=== PATIENT | female | born 1945 | race Caucasian/White ===

== ENCOUNTER → 2018-11-20 09:01 | Outpatient (CLI) | payer MEDICARE, SELFPAY ==
--- NOTE | 2018-11-20 | DI.MRI.S_ITS ---
PROCEDURE: MR KNEE LT WO CON INDICATIONS: PAIN IN LEFT KNEE TECHNIQUE: Noncontrast sagittal PD fast spin echo and T2 fast spin echo with fat saturation, sagittal 3-D FLASH with fat saturation; coronal T1 spin echo and PD fast spin echo with fat saturation, and axial PD fast spin echo with fat saturation through the knee. COMPARISON: None. FINDINGS: Image quality: Excellent. Menisci: The medial meniscus is intact. There is amorphous high signal intensity within the lateral meniscal body and anterior horn, demonstrating superior articular surface extension, indicating degenerative tearing. Cruciate ligaments: The anterior and posterior cruciate ligaments appear intact. Medial structures: The medial collateral ligament appears intact. Visualized portions of the pes anserinus tendons appear normal. No abnormal bursal fluid. Lateral structures: The lateral collateral ligament, long and short heads of the biceps femoris tendon appear intact. The popliteus tendon appears normal. Iliotibial band appears normal. Anterior structures: The quadriceps and patellar tendons appear intact. Patellar alignment is normal. No femoral trochlear dysplasia or ventral trochlear prominence. Mild edema in the infrapatellar fat pad. Bones and cartilage: No bone marrow contusions or fractures. There is mild diffuse articular cartilage loss overlying the weightbearing aspects of the medial femoral condyle and medial tibial plateau. Moderate articular cartilage loss diffusely overlies the weightbearing aspects of the lateral femoral condyle and lateral tibial plateau. Mild articular cartilage loss overlies the patellar apex and lateral patellar facet inferiorly. Small focus of underlying degenerative marrow edema within the patellar apex is present. Joint space: There is a small knee joint effusion and a trace Sadners's cyst. Normal appearing synovial plicae are incidentally noted. IMPRESSION: 1. Degenerative tearing of the lateral meniscus. 2. Tricompartmental osteoarthritis with associated articular cartilage loss. 3. Knee joint effusion and Sanders's cyst. Dictated by: Lionel Snow M.D. on 11/20/2018 at 10:10 Approved by: Lionel Snow M.D. on 11/20/2018 at 10:12
== END ==
PROVIDERS: PCP Family Medicine; Visit Provider Family Medicine
DX: M25.562 Pain in left knee (principal); M23.242 Derangement of anterior horn of lateral meniscus due to old tear or injury, left knee; M17.12 Unilateral primary osteoarthritis, left knee; M25.462 Effusion, left knee; M71.22 Synovial cyst of popliteal space [Baker], left knee
CPT/HCPCS: 73721

== ENCOUNTER 2019-04-26 22:06 | Observation (INO) | payer MEDICARE, SELFPAY ==
[2019-04-26 22:13] VITALS: BP 169/77; PULSE 71; RESP 16; TEMP 36.9; O2SAT 98
--- NOTE | 2019-04-26 22:15 | DI.RAD.S_ITS ---
PROCEDURE: XR CHEST 1V INDICATIONS: chest/neck discomfort TECHNIQUE: One view of the chest was acquired. COMPARISON: None. FINDINGS: Surgical changes and devices: None. Lungs and pleura: Lungs are clear. No pleural effusions or pneumothorax. Mediastinum: Mediastinal contours appear normal. Heart size is normal. Bones and chest wall: No suspicious bony lesions. Overlying soft tissues appear unremarkable. IMPRESSION: No acute cardiopulmonary disease. No significant discrepancy with the ER preliminary interpretation. Dictated by: Larry Moran M.D. on 04/27/2019 at 9:27 Approved by: Larry Moran M.D. on 04/27/2019 at 9:27
--- NOTE | 2019-04-26 22:30 | ED.CHESTPAIN ---
HPI - Chest Pain General Chief Complaint: Chest Pain Stated Complaint: TINGLING OF FACE AND PRESSURE OF NECK Time Seen by Provider: 04/26/19 22:24 Source: patient Mode of arrival: Ambulatory Limitations: no limitations History of Present Illness HPI narrative: Patient is a 74-year-old female with a history of hyperlipidemia on several medications for this. Has had a right-sided carotid endarterectomy. She states that starting earlier today she started have a fullness in her neck. She had no breathing problems and no problems swallowing. She described as someone grabbing onto her neck. She denies any chest pain. No shortness of breath. She stated that the symptoms started to resolve number completely resolved when [place]. Time my evaluation patient reported no symptoms. Related Data Home Medications Medication Instructions Recorded Confirmed Aspir-81 81 mg PO BEDTIME 04/27/19 04/27/19 CoQ-10 300 mg PO DAILY 04/27/19 04/27/19 amlodipine 2.5 mg PO DAILY 04/27/19 04/27/19 esomeprazole magnesium 40 mg PO BID 04/27/19 04/27/19 evolocumab [Repatha SureClick] 140 mg SUBCUT Q2W 04/27/19 04/27/19 gemfibrozil 600 mg PO DAILY 04/27/19 04/27/19 irbesartan 150 mg PO DAILY 04/27/19 04/27/19 levothyroxine 0.088 mcg PO DAILY 04/27/19 04/27/19 oxybutynin chloride 5 mg PO BID 04/27/19 04/27/19 Allergies Allergy/AdvReac Type Severity Reaction Status Date / Time Sulfa (Sulfonamide Allergy Verified 04/27/19 02:18 Antibiotics) Review of Systems Constitutional Constitutional: Denies fever(s) and Denies headache(s) ENT Ears, Nose, Mouth, and Throat: Denies headache(s) Comments: Pressure around the throat Cardiovascular Cardiovascular: Denies chest pain, Denies palpitations and Denies dyspnea Respiratory Respiratory: Denies cough and Denies dyspnea Gastrointestinal Gastrointestinal: Denies abdominal pain, Denies nausea and Denies vomiting Genitourinary Genitourinary: Denies dysuria Musculoskeletal Musculoskeletal: Denies myalgias, Denies arthralgias and Denies tingling Integumentary/Breasts Skin/Breast: Denies rash Neurologic Neurologic: Denies headache(s), Denies tingling and Denies paresthesias Endocrine Endocrine: Denies palpitations Hematologic/Lymphatic Hematologic/Lymphatic: Denies easy bleeding and Denies easy bruising [facility] Medical History GERD (gastroesophageal reflux disease) (Acute) History of hysterectomy (Acute) Hyperlipidemia (Acute) Hypertension (Acute) Hypothyroidism (Acute) Irritable bladder (Acute) Surgical History History of appendectomy (Acute) History of arthroscopy of knee (Acute) History of right-sided carotid endarterectomy (Acute) History of shoulder surgery (Acute) Status post Dupuytren's fasciectomy (Acute) Social History Smoking Status: Never smoker Family History (Updated 04/27/19 @ 02:08 by ELIU Davis) Father Alcoholism Mother Cardiovascular disease Hyperlipidemia Brother Cardiovascular disease Hyperlipidemia Sister In good health Social History household members: spouse Smoking Status: Former smoker Exam Initial Vital Signs Initial Vital Signs: Vital Signs Temperature 98.4 F 04/26/19 22:13 Pulse Rate 71 04/26/19 22:13 Respiratory Rate 16 04/26/19 22:13 Blood Pressure 169/77 H 04/26/19 22:13 Pulse Oximetry 98 04/26/19 22:13 Const General: cooperative, comfortable, well developed and well groomed Orientation: alert, awake and oriented x3 HENMT Head: normal to inspection and normocephalic Neck Neck: normal visual inspection, trachea midline and No tender Thyroid: thyroid normal Chest Chest: normal inspection of the chest Resp Effort & Inspection: normal respiratory effort Auscultation: clear to auscultation bilaterally Cardio Rate: regular rate Rhythm: regular rhythm GI Inspection: non-distended Palpation: soft Skin Lesions: no lesions Rashes: no rashes Neuro General: alert and awake Cranial Nerves: CN's II-XI intact bilaterally Cognition: normal cognition Speech: speech normal Gait: normal gait Motor: muscle tone normal throughout Extrem General: normal to inspection and capillary refill normal Psych Appearance: grossly normal and well kempt Scores HEART Score Heart Score history: Moderately Suspicious Heart Score EKG: Normal Heart Score Age: > or = 65 years old Heart Score risk factors: 1-2 risk factors Heart Score troponin: < or = to normal limit Heart Score Total: 4 Course Orders Ordered: ED Orders 04/26/19 22:13 EKG-12 Lead Stat 04/26/19 22:15 XR chest 1V Stat 04/26/19 22:25 Complete Blood Count AUTO DIFF Stat Comprehensive Metabolic Panel Stat Troponin & CK Cardiac Panel Stat 04/26/19 22:37 XR soft tissue neck Stat 04/27/19 00:05 Troponin I Stat Acetaminophen (Tylenol) 650 mg PO Q6HR PRN PRN Reason: As Needed for Fever/Mild Pain Al Hydrox/Mg Hydrox/Simethicone (Maalox Plus) 30 ml PO Q6HR PRN PRN Reason: Dyspepsia Amlodipine Besylate (Norvasc) 2.5 mg PO DAILY [facility] Aspirin (Aspirin Ec) 81 mg PO DAILY [facility] Calcium Carbonate (Tums) 1,000 mg PO Q4HR PRN PRN Reason: Dyspepsia Gemfibrozil (Lopid) 600 mg PO DAILY [facility] Irbesartan (Avapro) 150 mg PO DAILY [facility] Levothyroxine Sodium (Synthroid) 0.088 mcg PO DAILY [facility] Morphine Sulfate (Morphine) 2 mg IV Q5MIN PRN PRN Reason: Chest Pain Nitroglycerin (Nitrostat) 0.4 mg SL [id number] PRN PRN Reason: Chest Pain Ondansetron HCl (Zofran) 4 mg IV Q8HR PRN PRN Reason: Nausea And Vomiting Oxybutynin (Ditropan) 5 mg PO BID [facility] Pantoprazole Sodium (Protonix) 40 mg PO BID [facility] Vital Signs Vital signs: Vital Signs - 8 hr 04/26/19 22:13 Temperature 98.4 F Pulse Rate 71 Respiratory Rate 16 Blood Pressure 169/77 H Pulse Oximetry 98 MDM - Chest Pain Lab Data Attestation: I reviewed the patient's lab results. Result diagrams: 04/26/19 22:25 04/26/19 22:25 Labs: Lab Results 04/26/19 04/26/19 04/27/19 Range/Units 22:25 22:25 00:05 WBC 6.5 (4.5-11.0) X10^3/uL RBC 4.56 (4.0-5.2) X10^6/uL Hgb 13.8 (12.0-16.0) g/dL Hct 40.7 (36-46) % MCV 89.4 (80-100) fL MCH 30.4 (26-34) PG MCHC 34.0 (30-36) % RDW 13.0 (11.6-14.8) % Plt Count 250 (150-400) X10^3/uL Neut % (Auto) 57.1 (50-75) % Lymph % (Auto) 31.1 (25-40) % [place] % (Auto) 8.8 (3-14) % Eos % (Auto) 2.3 (2-4) % Baso % (Auto) 0.7 (0-2) % Neut # (Auto) 3700 (5486-9514) /uL Lymph # (Auto) 2000 (4296-1225) /uL [place] # (Auto) 600 (0-900) /uL Eos # (Auto) 100 (0-450) /uL Baso # (Auto) 0 (0-100) /uL Sodium 139 (137-145) mmol/L Potassium 3.7 (3.4-5.1) mmol/L Chloride 102 (98-107) mmol/L Carbon Dioxide 29 (22-32) mmol/L BUN 16 (7-17) mg/dL Creatinine 0.70 (0.52-1.04) mg/dL Estimated GFR > 60.0 (>60) mL/min BUN/Creatinine Ratio 22.9 H (6-22) Glucose 98 (80-110) mg/dL Calcium 9.8 (8.4-10.2) mg/dL Total Bilirubin 0.6 (0.2-1.3) mg/dL AST 31 (14-36) IU/L ALT 23 (9-52) IU/L Alkaline Phosphatase 71 (38-126) U/L Total Creatine Kinase 129 (30-135) U/L CK-MB (CK-2) 2.34 (<2.37) ng/mL CK-MB (CK-2) Rel Index 1.8 (1.5-5.0) % Troponin I 0.014 0.026 (0.01-0.034) ng/mL Total Protein 7.8 (6.3-8.2) g/dL Albumin 4.7 (3.5-5.0) g/dL Globulin 3.1 (1.7-4.1) g/dL Albumin/Globulin Ratio 1.5 (1.0-2.8) Imaging Data Chest x-ray: Attestation: I personally reviewed and interpreted this imaging study as follows: My impression: No pneumonia, normal size heart, no acute pathology Soft tissue neck: Attestation: I personally reviewed and interpreted this imaging study as follows: My impression: No swelling, no acute pathology, ECG Data Attestation: I personally reviewed and interpreted this ECG as follows: Prior ECG tracings: not available for review Interpretation: Sinus bradycardia Ventricular rate of 52 Normal QRS Normal QTC Normal axis No ST T wave changes MDM Narrative Medical decision making narrative: Soft tissue neck unremarkable. Chest x-ray is unremarkable. She has been symptomatic since being here in the emergency department. Her troponin was negative but in the detectable range. Repeat troponin was slightly higher than initial although still be technically negative. She does have several risk factors. Heart score 4. I have low suspicion that her neck pain was related to her carotid arteries. She was concerned about this. I would have more concerned that her neck pain was an anginal equivalent given the fact that she is female and her other comorbidities. I did discuss the case with JESSICA Carty the night hospitalist to as accepted the patient for further trending of the troponins. I did discuss the admission with the patient. I did discuss my concerns. She expressed understanding and agreement with plan. Discharge Plan Departure Patient Disposition: Admitted as Observation Clinical Impression: Atypical chest pain, Fullness of neck Discharge Date/Time: 04/27/19 01:57 Admit Date/Time: 04/27/19 01:10 Admit Provider: Royce aCrty
--- NOTE | 2019-04-26 22:37 | DI.RAD.S_ITS ---
PROCEDURE: XR SOFT TISSUE NECK INDICATIONS: neck fullness TECHNIQUE: 2 views of the neck were acquired. COMPARISON: None. FINDINGS: Airway: The airway appears patent. Soft tissues: Prevertebral soft tissues are normal in thickness. The epiglottis and aryepiglottic folds appear normal. No soft tissue gas. Calcification in the left neck is likely calcified carotid plaques. Bones: No suspicious bony lesions. Visualized cervical spine is normally aligned. Mild degenerative disc disease in cervical spine. IMPRESSION: Normal soft tissue neck. No significant discrepancy with the ER preliminary interpretation. Dictated by: Larry Moran M.D. on 04/27/2019 at 9:28 Approved by: Larry Moran M.D. on 04/27/2019 at 9:30
[2019-04-26 22:41] LABS: Add Manual Diff / Slide Review NO; Basophils Absolute Auto 0 /uL (0-100); Basophils Percent Auto 0.7 % (0-2); Eosinophils Absolute Auto 100 /uL (0-450); Eosinophils Percent Auto 2.3 % (2-4); Hematocrit 40.7 % (36-46); Hemoglobin 13.8 g/dL (12.0-16.0); Lymphocytes Absolute Auto 2000 /uL (1100-4500); Lymphocytes Percent Auto 31.1 % (25-40); Mean Corpuscular Hemoglobin 30.4 PG (26-34); Mean Corpuscular Volume 89.4 fL (80-100); Monocytes Absolute Auto 600 /uL (0-900); Monocytes Percent Auto 8.8 % (3-14); Neutrophils Absolute Auto 3700 /uL (1500-7000); Neutrophils Percent Auto 57.1 % (50-75); Platelet Count 250 X10^3/uL (150-400); Red Blood Cell Count 4.56 X10^6/uL (4.0-5.2); White Blood Cell Count 6.5 X10^3/uL (4.5-11.0)
[2019-04-26 22:44] LABS: Alanine Aminotransferase 23 IU/L (9-52); Albumin 4.7 g/dL (3.5-5.0); Albumin Globulin Ratio 1.5 (1.0-2.8); Alkaline Phosphatase 71 U/L (38-126); Aspartate Aminotransferase 31 IU/L (14-36); BUN Creatinine Ratio 22.9 (6-22); Bilirubin Total 0.6 mg/dL (0.2-1.3); Blood Urea Nitrogen 16 mg/dL (7-17); Calcium 9.8 mg/dL (8.4-10.2); Carbon Dioxide 29 mmol/L (22-32); Chloride 102 mmol/L (98-107); Creatine Kinase 129 U/L (30-135); Estimated Glomerular Filt Rate > 60.0 mL/min (>60); Globulin 3.1 g/dL (1.7-4.1); Glucose 98 mg/dL (80-110); HEMOLYSIS 25 (0-50); Potassium 3.7 mmol/L (3.4-5.1); Sodium 139 mmol/L (137-145); Total Protein 7.8 g/dL (6.3-8.2)
[2019-04-26 22:55] LABS: Troponin I 0.014 ng/mL (0.01-0.034)
[2019-04-26 22:59] LABS: CKMB % Relative Index 1.8 % (1.5-5.0); Creatine Kinase MB 2.34 ng/mL (<2.37)
[2019-04-27] VITALS (10 sets, daily range): BP systolic 122–158; BP diastolic 55–76; PULSE 47–87; RESP 14–17; TEMP 36.6–36.8; O2SAT 96–100; BMI 28.3
[2019-04-27 00:43] LABS: Troponin I 0.026 ng/mL (0.01-0.034)
--- NOTE | 2019-04-27 01:42 | P.HP_ITS ---
History of Present Illness History of Present Illness Date Patient Seen: 04/27/19 Time Patient Seen: 01:42 Chief complaint: TINGLING OF FACE AND PRESSURE OF NECK Narrative: Ms. Christie Gutierrez is a 74 year old female with history significant for hypertension, hyperlipidemia, hypothyroidism and gastroesophageal reflux disorder who presents to the ER for complaints face tingling and neck pressure. The patient states that her symptoms began about 5:00 p.m. and have waxed and waned a bit. She describes the sensation is tingling bilateral lower face and pressure neck like somebody is choking her. She states she took an baby aspirin relating her concern regarding her prior carotid blockage for which she underwent carotid endarterectomy. She denies complaints of headaches or dizziness, visual changes, changes in speech or swallowing and has no chest pressure or palpitations, heartburn or reflux. She reports no recent illness and has had no shortness of breath cough or wheezing. She denies abdominal pain, nausea vomiting, diarrhea or constipation. She denies dysuria and is independent in all activities daily living. Patient also has risk factor of str josy family history in multiple family members of cardiac disease. Upon arrival to the ER the patient has a temperature 98.4?, heart rate 71, respirations 16, blood pressure 169/77 saturating 90% on room air. A 12 lead EKG was obtained finding sinus bradycardia without ectopy or block, inverted T-w ave in lead 3 and possibly AVF since difficult to discern related to artifact. Patient also underwent imaging with a chest x-ray which finds no acute cardiopulmonary processes and normal heart size, she also had soft tissue examination the neck which was also unremarkable. Labs are obtained finding a white count of 6.5, hemoglobin 13.8 hematocrit of 40.7 and platelets 250. Her electrolytes are within normal limits she has a BUN of 16 creatinine 0.7 her nonfasting glucose is 98. LFTs within normal limits. She had an initial troponin of 0.014 S 2nd troponin 2 hours later of 0.026. Patient History Medical History GERD (gastroesophageal reflux disease) (Acute) History of hysterectomy (Acute) Hyperlipidemia (Acute) Hypertension (Acute) Hypothyroidism (Acute) Irritable bladder (Acute) Surgical History History of appendectomy (Acute) History of arthroscopy of knee (Acute) History of right-sided carotid endarterectomy (Acute) History of shoulder surgery (Acute) Status post Dupuytren's fasciectomy (Acute) Social History Smoking Status: Never smoker Family & Social History Family History (Updated 04/27/19 @ 02:08 by ELIU Davis) Father Alcoholism Mother Cardiovascular disease Hyperlipidemia Brother Cardiovascular disease Hyperlipidemia Sister In good health Tobacco & Substance use: Smoking Status Never smoker Comment: The patient lives in a single family home on [address] with her to whom she has been for 29 years. She has a strong family history of heart disease in her mother and her brother. She knows little of her father who was an alcoholic and estranged from the family. Occupation: Patient is self-employed entry level project coordinator. Smoking: The patient quit smoking approximately 20 years ago before which she smoked approximately 1 pack per week. Alcohol: Patient endorses consuming an occasional beer or wine. Substance use: The patient denies use of recreational pharmaceuticals, herbal or cannabis products. Advanced directives: Patient has formal advanced directives and she states that her designated wish is to be FULL CODE. She designates her to be her surrogate decision maker. Meds Home Medications and Allergies Home Medications Medication Instructions Recorded Confirmed Type Aspir-81 81 mg PO BEDTIME 04/27/19 04/27/19 History CoQ-10 300 mg PO DAILY 04/27/19 04/27/19 History amlodipine 2.5 mg PO DAILY 04/27/19 04/27/19 History esomeprazole magnesium 40 mg PO BID 04/27/19 04/27/19 History evolocumab [Repathbradley Rodriguez] 140 mg SUBCUT Q2W 04/27/19 04/27/19 History gemfibrozil 600 mg PO DAILY 04/27/19 04/27/19 History irbesartan 150 mg PO DAILY 04/27/19 04/27/19 History levothyroxine 0.088 mcg PO DAILY 04/27/19 04/27/19 History oxybutynin chloride 5 mg PO BID 04/27/19 04/27/19 History Allergies Allergy/AdvReac Type Severity Reaction Status Date / Time Sulfa (Sulfonamide Allergy Verified 04/27/19 02:18 Antibiotics) Review of Systems Review of Systems ROS Unobtainable: All systems reviewed & are unremarkable except as noted in HPI and below Exam Vital Signs (past 8 hours): - 04/26/19 22:13 Temperature 98.4 F Pulse Rate 71 Respiratory Rate 16 Blood Pressure 169/77 H Pulse Oximetry 98 Oxygen Delivery Method Room Air Narrative Exam Narrative: GENERAL APPEARANCE: well developed, well nourished, in no acute distress. HEENT: Normocephalic, PERRLA, conjunctiva clear, sclera anicteric, EOMs intact without nystagmus, no sinus tenderness to percussion, no rhinorrhea, mucous membranes are moist and pink without lesions or exudate. NECK/THYROID: neck supple, no pain on palpation, no muscular spasms, no JVD, no carotid bruit, no thyromegaly, trachea midline. LYMPH NODES: no cervical or supraclavicular lymphadenopathy. SKIN: warm and dry, no suspicious lesions, no rashes, ulcerations or petechiae. HEART: regular rate and rhythm, S1-S2, 1/6 murmur, no rubs or gallops, brisk capillary refill, trace pedal edema LUNGS: clear to auscultation bilaterally, no coarseness crackles or wheezing, no cough present CHEST: Symmetrical movement, no accessory muscle use, no pain to AP and lateral compression. ABDOMEN: Soft, no distention, no abdominal tenderness, no organomegaly, no flank or suprapubic tenderness, active bowel tones. BACK: Nontender to palpation EXTREMITIES: moves all extremities, strength is 5/5 and symmetrical, no deformities or joint effusions. NEUROLOGIC: AAO x4, no focal neurologic deficits, cranial nerves II-XII grossly intact, facial sensation intact in upper middle and lower branches of the facial nerve, no dysarthria or dysphasia, no ataxia, hearing grossly normal to speech, NIH 0. PSYCH: alert, cognitive function intact, resting mostly with eyes closed, responds appropriately with stable behavior Objective Labs Result Diagrams: 04/26/19 22:25 04/26/19 22:25 Labs: Laboratory Results - last 24 hr 04/26/19 04/26/19 04/27/19 22:25 22:25 00:05 WBC 6.5 RBC 4.56 Hgb 13.8 Hct 40.7 MCV 89.4 MCH 30.4 MCHC 34.0 RDW 13.0 Plt Count 250 Neut % (Auto) 57.1 Lymph % (Auto) 31.1 Wilkinson % (Auto) 8.8 Eos % (Auto) 2.3 Baso % (Auto) 0.7 Neut # (Auto) 3700 Lymph # (Auto) 2000 [place] # (Auto) 600 Eos # (Auto) 100 Baso # (Auto) 0 Sodium 139 Potassium 3.7 Chloride 102 Carbon Dioxide 29 BUN 16 Creatinine 0.70 Estimated GFR > 60.0 BUN/Creatinine Ratio 22.9 H Glucose 98 Calcium 9.8 Total Bilirubin 0.6 AST 31 ALT 23 Alkaline Phosphatase 71 Total Creatine Kinase 129 CK-MB (CK-2) 2.34 CK-MB (CK-2) Rel Index 1.8 Troponin I 0.014 0.026 Total Protein 7.8 Albumin 4.7 Globulin 3.1 Albumin/Globulin Ratio 1.5 Assessment & Plan Assessment & Plan narrative: This is a 74-year-old female patient who presents to the ER for neck pressure/fullness, atypical chest pain with multiple risk factors including strong family history, hypertension and hyperlipidemia requiring multiple medications.. 1. Neck pressure, acute, present on admission, active -patient with onset of symptoms at 5:00 p.m. not associated with activity described as fullness and pressure at the base of the neck, no palpitations shortness of breath diaphoresis or nausea. The discomfort is worrisome for an atypical angina in a female. -CT scan done 10/04/2018 finds grade 1 anterolisthesis of C3 on C4, C7 on T1. [id number] degenerative disease at C4-C5, C5-C6 and C6-C7. -no neck pain on palpation, no muscle spasms -strong family history with her mother and her brother both having significant cardiac disease and hyperlipidemia. -12 lead EKG finds inverted T-wave in lead 3 and possibly AVF difficult to discern due to artifact. -patient has received an aspirin in the emergency department will continue aspirin 81 mg daily. -will continue to follow troponin that is rising but has not turned positive -exercise stress test in the morning. 2. Facial tingling, acute, resolved, active -the patient describes bilateral mandibular region tingling, no dysarthria, dysphonia or aphasia, symptoms have resolved. NIH score 0, ABCD2 score is 4. -patient drives previous episode but is unable describe when occurring right face. Patient has had prior right CEA, no bruits appreciated. -will perform serial neuro exams. 3. Essential hypertension, chronic, present on admission, active -patient was 169/7 7 on arrival to the ED and 144/65 upon arrival to the floor -continue patient's home regimen of irbesartan 150 mg daily, amlodipine 2.5 mg daily 4. Mixed hyperlipidemia, chronic, present on admission, stable -patient previously on atorvastatin transition to evolocumab 140 mg subcu Q 2 weeks. She is also taking gemfibrozil for elevated triglycerides. -continue home regimen of gemfibrozil 600 mg twice daily. 5. Hypothyroidism, acquired, chronic, stable -continue patient's home dose of levothyroxine 88 mcg daily. 6. Gastroesophageal reflux disorder, present on admission, stable -continue patient's home regimen of esomeprazole 40 mg twice daily. The patient is admitted to the hospital with concerns for anginal variant in a female patient and potential risk for complications and adverse events. The patient is admitted as an observation patient with expected length of stay to be less than 2 midnights. Scores GCS [place] coma scale eye opening: Spontaneous [place] coma scale verbal response: Orientated Dustin coma scale motor response: Obey commands [place] coma scale total score: 15 ABCD2 Age >= 60 years: yes Initial BP. Either SBP >= 140 or DBP >= 90.: yes Clinical features of the TIA: other symptoms Duration of symptoms: >= 60 minutes History of diabetes: no ABCD2 Score: 4
[2019-04-27 06:53] LABS: Blood Urea Nitrogen 15 mg/dL (7-17); Calcium 9.3 mg/dL (8.4-10.2); Carbon Dioxide 27 mmol/L (22-32); Chloride 104 mmol/L (98-107); Cholesterol 169 mg/dL (140-199); Estimated Glomerular Filt Rate > 60.0 mL/min (>60); Glucose 93 mg/dL (80-110); HDL Cholesterol 73 mg/dL (40-60); HEMOLYSIS < 15 (0-50); LDL Cholesterol Calculated 80 mg/dL (<100); Potassium 3.9 mmol/L (3.4-5.1); Sodium 141 mmol/L (137-145); Triglycerides 79 mg/dL (35-150)
[2019-04-27 07:37] LABS: Troponin I 0.016 ng/mL (0.01-0.034)
[2019-04-27] MEDS: IRBESARTAN 150 MG TABLET PO (08:47)
[2019-04-27] MEDS: OXYBUTYNIN 5 MG TABLET PO (08:47)
[2019-04-27] MEDS: LEVOTHYROXINE 88 MCG TABLET PO (08:50)
--- NOTE | 2019-04-27 09:22 | CM.DANOTE ---
DCP; Case received, EMR reviewed and met with patient. Introduced self and role. Was able to obtain baseline history from patient, spouse, Ed, also at bedside. DCP assessment/template completed with information currently available. Patient is a 74 year old female who admitted early this morning to the care of the hospitalist team. PCP: Dr. Jesus. Payer: confirmed: Medicare/[employer]. Patient came to the hospital via private vehicle secondary to complaints of tingling in her face and neck. Met with patient and in her room. She is alert and oriented, independent, lives at home with her spouse, Ed, of 29 years. She stated that she will be having some testing done here in hospital, before going home. She had just seen hospitalist. P: DCP to continue to follow. She should be able to go home when she is medically stable. Idalia Reilly RN/[employer]
--- NOTE | 2019-04-27 11:54 | PC.NURSE ---
Day shift: Pt off unit for stress test at 1130.
--- NOTE | 2019-04-27 13:31 | PM.TREADMILL ---
Cardiac Stress Test Report Referral & Results Date Patient Seen: 04/27/19 Time Patient Seen: 12:00 Requesting provider: Royce Carty Indication: Chest pain Rest ECG: NSR Procedure Note: Today following both written and verbal informed consent, the patient was exercised according to a standard [facility] protocol. The patient exercised for a total of 6 minutes 9 seconds achieving a maximum heart rate of 155. Patient's maximum systolic blood pressure was 162. This was an estimated 7.0 METs. Testing terminated largely due to orthopedic pain. No signs or symptoms of angina. Less than 0.[address] deviations in multiple leads that resolved rapidly with rest. No change in rhythm. MARC 0% on active scale. Impression: Low probability for ischemia. Consider noncardiac causes for the patient's complaints. Please note: Actual ECG tracings can be found in the PACS system.
--- NOTE | 2019-04-27 14:49 | PC.NURSE ---
Day shift: Pt left unit at approx 1450 to car to [facility] to [facility]. Paperwork signed and all questions answered. No new MD scrips. Pt has all personal belongings. Have [facility] boarding pass.
--- NOTE | 2019-04-27 16:12 | P.DS_ITS ---
History of Present Illness History of Present Illness Date Patient Seen: 04/27/19 Time Patient Seen: 09:15 Chief complaint: TINGLING OF FACE AND PRESSURE OF NECK Narrative: As per ELIU Davis: Ms. Christie Gutierrez is a 74 year old female with history significant for hypertension, hyperlipidemia, hypothyroidism and gastroesophageal reflux disorder who presents to the ER for complaints face tingling and neck pressure. The patient states that her symptoms began about 5:00 p.m. and have waxed and waned a bit. She describes the sensation is tingling bilateral lower face and pressure neck like somebody is choking her. She states she took an baby aspirin relating her concern regarding her prior carotid blockage for which she unde rwent carotid endarterectomy. She denies complaints of headaches or dizziness, visual changes, changes in speech or swallowing and has no chest pressure or palpitations, heartburn or reflux. She reports no recent illness and has had no shortness of breath cough or wheezing. She denies abdominal pain, nausea vomiting, diarrhea or constipation. She denies dysuria and is independent in all activities daily living. Patient also has risk factor of strong family history in multiple family members of cardiac disease. Upon arrival to the ER the patient has a temperature 98.4?, heart rate 71, res pirations 16, blood pressure 169/77 saturating 90% on room air. A 12 lead EKG was obtained finding sinus bradycardia without ectopy or block, inverted T-wave in lead 3 and possibly AVF since difficult to discern related to artifact. Patient also underwent imaging with a chest x-ray which finds no acute cardiopulmonary processes and normal heart size, she also had soft tissue examination the neck which was also unremarkable. Labs are obtained finding a white count of 6.5, hemoglobin 13.8 hematocrit of 40.7 and platelets 250. Her electrolytes are within normal limits she has a BUN of 16 creatinine 0.7 her nonfasting glucose is 98. LFTs within normal limits. She had an initial troponin of 0.014 S 2nd troponin 2 hours later of 0.026. Discharge Providers Provider Date of admission: 04/27/19 01:10 Discharge Date: 04/27/19 Primary care physician: Jake Jesus MD Consults: 04/27/19 01:48 Consult to Discharge Planning Routine Comment: Discharge provider: Royce Hernandez DO Summary Hospital Course Discharge Diagnosis: 1. Neck pressure, acute, present on admission, active 2. Facial tingling, acute, resolved, active 3. Essential hypertension, chronic, present on admission, active 4. Mixed hyperlipidemia, chronic, present on admission, stable 5. Hypothyroidism, acquired, chronic, stable 6. Gastroesophageal reflux disorder, present on admission, stable Hospital Course: This is a 74-year-old female patient who presents to the ER for neck pressure/fullness, atypical chest pain with multiple risk factors including strong family history, hypertension and hyperlipidemia requiring multiple medications. She underwent an exercise stress test, which showed low possibility of ischemia. She was discharged home following this test, her symptoms had resolved at time of discharge. She should follow up with her primary care provider further management 1. Neck pressure, acute, present on admission, active -patient with onset of symptoms at 5:00 p.m. not associated with activity described as fullness and pressure at the base of the neck, no palpitations shortness of breath diaphoresis or nausea. The discomfort is worrisome for an atypical angina in a female. -CT scan done 10/04/2018 finds grade 1 anterolisthesis of C3 on C4, C7 on T1. 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 -no neck pain on palpation, no muscle spasms -strong family history with her mother and her brother both having significant c ardiac disease and hyperlipidemia. -12 lead EKG finds inverted T-wave in lead 3 and possibly AVF difficult to discern due to artifact. -patient has received an aspirin in the emergency department will continue aspirin 81 mg daily. -low level troponinemia (still within normal limits) ultimately down trended -exercise stress test showed low probability of ischemia, patient is stable for discharge home. 2. Facial tingling, acute, resolved, active -the patient describes bilateral mandibular region tingling, no dysarthria, dysphonia or aphasia, symptoms have resolved. NIH score 0, ABCD2 score is 4. -patient drives previous episode but is unable describe when occurring right face. Patient has had prior right CEA, no bruits appreciated. -serial neurological exams were unremarkable. 3. Essential hypertension, chronic, present on admission, active -patient was 169/7 7 on arrival to the ED and 144/65 upon arrival to the floor -continue patient's home regimen of irbesartan 150 mg daily, amlodipine 2.5 mg daily 4. Mixed hyperlipidemia, chronic, present on admission, stable -patient previously on atorvastatin transition to evolocumab 140 mg subcu Q 2 weeks. She is also taking gemfibrozil for elevated triglycerides. -continue home regimen of gemfibrozil 600 mg twice daily. 5. Hypothyroidism, acquired, chronic, stable -continue patient's home dose of levothyroxine 88 mcg daily. 6. Gastroesophageal reflux disorder, present on admission, stable -continue patient's home regimen of esomeprazole 40 mg twice daily. Dispo: discharged home in good condition. Exam Vital Signs (past 8 hours): - 04/27/19 10:04 04/27/19 11:00 04/27/19 14:23 Temperature 98.2 F Pulse Rate 87 Respiratory Rate 14 Blood Pressure 122/76 Pulse Oximetry 97 97 97 Oxygen Delivery Method Room Air Oxygen Flow Rate 0 Narrative Exam Narrative: GENERAL APPEARANCE: Well developed, well nourished, in no acute distress. SKIN: Inspection of the skin reveals no rashes, ulcerations or petechiae. HEENT: The sclerae were anicteric and conjunctivae were pink and moist. Extraocular movements were intact and pupils were equal, round with normal accommodation. External inspection of the ears and nose showed no scars, les ions, or masses. Lips, teeth, and gums showed normal mucosa. The oral mucosa, hard and soft palate, tongue and posterior pharynx were unremarkable. NECK: Supple and symmetric. There was no thyroid enlargement, and no tenderness, or masses were felt. CHEST: Normal AP diameter and normal contour without any kyphoscoliosis. LUNGS: Auscultation of the lungs revealed no wheezes, rhonchi, or rales. CARDIOVASCULAR: There was a regular rate and rhythm without any murmurs, gallops, rubs. Peripheral pulses were 2+ and symmetric. ABDOMEN: Soft and nontender with normal bowel sounds. No ascites was noted. MUSCULOSKELETAL: There was no tenderness or effusions noted. Muscle strength and tone were normal. EXTREMITIES: No cyanosis, clubbing or edema. NEUROLOGIC: Alert and oriented x 3. Normal affect. Gait was normal. Strength is +5/5 in the Upper Extremities and Lower Extremities Bilaterally. Sensation to touch was normal. CN 2-12 grossly intact bilaterally. Objective Labs Result Diagrams: 04/26/19 22:25 04/27/19 06:07 Labs: Laboratory Results - last 24 hr 04/26/19 04/26/19 04/27/19 22:25 22:25 00:05 WBC 6.5 RBC 4.56 Hgb 13.8 Hct 40.7 MCV 89.4 MCH 30.4 MCHC 34.0 RDW 13.0 Plt Count 250 Neut % (Auto) 57.1 Lymph % (Auto) 31.1 [place] % (Auto) 8.8 Eos % (Auto) 2.3 Baso % (Auto) 0.7 Neut # (Auto) 3700 Lymph # (Auto) 2000 [place] # (Auto) 600 Eos # (Auto) 100 Baso # (Auto) 0 Sodium 139 Potassium 3.7 Chloride 102 Carbon Dioxide 29 BUN 16 Creatinine 0.70 Estimated GFR > 60.0 BUN/Creatinine Ratio 22.9 H Glucose 98 Calcium 9.8 Total Bilirubin 0.6 AST 31 ALT 23 Alkaline Phosphatase 71 Total Creatine Kinase 129 CK-MB (CK-2) 2.34 CK-MB (CK-2) Rel Index 1.8 Troponin I 0.014 0.026 Total Protein 7.8 Albumin 4.7 Globulin 3.1 Albumin/Globulin Ratio 1.5 Triglycerides Cholesterol LDL Cholesterol, Calc HDL Cholesterol 04/27/19 04/27/19 06:07 06:32 WBC RBC Hgb Hct MCV MCH MCHC RDW Plt Count Neut % (Auto) Lymph % (Auto) [place] % (Auto) Eos % (Auto) Baso % (Auto) Neut # (Auto) Lymph # (Auto) [place] # (Auto) Eos # (Auto) Baso # (Auto) Sodium 141 Potassium 3.9 Chloride 104 Carbon Dioxide 27 BUN 15 Creatinine 0.60 Estimated GFR > 60.0 BUN/Creatinine Ratio 25.0 H Glucose 93 Calcium 9.3 Total Bilirubin AST ALT Alkaline Phosphatase Total Creatine Kinase CK-MB (CK-2) CK-MB (CK-2) Rel Index Troponin I 0.016 Total Protein Albumin Globulin Albumin/Globulin Ratio Triglycerides 79 Cholesterol 169 LDL Cholesterol, Calc 80 HDL Cholesterol 73 H Discharge Plan Discharge Plan Patient Disposition: Home Discharge comment: You were admitted to the hospital for evaluation of your heart. You underwent a stress test which showed low likelihood of ischemia. Your discharge home. No changes to medications were made. He should follow up with her primary care provider within the next week for follow-up of your s ymptoms. Discharge Med Rec/Prescriptions Prescriptions: Continued amlodipine 2.5 mg tablet 2.5 mg PO DAILY RF: 0 irbesartan 150 mg tablet 150 mg PO DAILY RF: 0 levothyroxine 88 mcg tablet 0.088 mcg PO DAILY RF: 0 esomeprazole magnesium 40 mg capsule,delayed release(DR/EC) 40 mg PO BID RF: 0 oxybutynin chloride 5 mg tablet 5 mg PO BID RF: 0 gemfibrozil 600 mg tablet 600 mg PO DAILY RF: 0 CoQ-10 300 mg PO DAILY RF: 0 Aspir-81 81 mg PO BEDTIME RF: 0 Repatha SureClick 140 mg/mL pen injector 140 mg SUBCUT Q2W RF: 0 Follow up/Referrals: Jake Jesus MD [Primary Care Provider] - Provider Discharge Instructions Diet: Low-cholesterol Activity: As tolerated Visit Report/Discharge Packet Instructions: Cardiac Stress Test, DI for Cardiac Stress Test Visit Report Forms: Stroke Signs & Symptoms Discharge Data Primary Care Provider: Jake Jesus Attending Provider: Royce Carty Admit Date/Time: 04/27/19 01:10 Discharges patient from system. Discharge Date/Time: 04/27/19 14:50 Quality VTE Deep Vein Thrombosis/Pulmonary Embolism Present on Admission: No
== END 2019-04-27 14:50 | disposition home or self-care (01) ==
LOC: ED 04-27 01:08 → AC 04-27 01:11
PROVIDERS: Admitting Provider Nurse Practitioner Adult Health; Emergency Provider Emergency Medicine; PCP Family Medicine; Visit Provider Nurse Practitioner Adult Health
DX: R07.9 Chest pain, unspecified (principal); R20.2 Paresthesia of skin; I10 Essential (primary) hypertension; E78.5 Hyperlipidemia, unspecified; E03.9 Hypothyroidism, unspecified; K21.9 Gastro-esophageal reflux disease without esophagitis
CPT/HCPCS: 36415; 70360; 71045; 80048; 80053; 80061; 82550; 82553; 84484; 85025; 93005; 93010; 93016; 93017; 93018; 99282; 99285; G0378

== ENCOUNTER → 2021-05-16 08:24 | Outpatient (CLI) | payer MEDICARE, SELFPAY ==
[2019-04-27 02:01] VITALS: BMI 28.3
[2021-05-16 19:34] LABS: Add Manual Diff / Slide Review NO; Basophils Absolute Auto 0 /uL (0-100); Basophils Percent Auto 0.6 % (0-2); Eosinophils Absolute Auto 100 /uL (0-450); Eosinophils Percent Auto 1.4 % (2-4); Hematocrit 40.8 % (36-46); Hemoglobin 13.4 g/dL (12.0-16.0); Lymphocytes Absolute Auto 1000 /uL (1100-4500); Lymphocytes Percent Auto 19.2 % (25-40); Mean Corpuscular HGB Conc 32.9 % (30-36); Mean Corpuscular Hemoglobin 30.2 PG (26-34); Mean Corpuscular Volume 91.8 fL (80-100); Monocytes Absolute Auto 400 /uL (0-900); Monocytes Percent Auto 6.8 % (3-14); Neutrophils Absolute Auto 3700 /uL (1500-7000); Platelet Count 266 X10^3/uL (150-400); Red Blood Cell Count 4.44 X10^6/uL (4.0-5.2); Red Cell Distribution Width 12.5 % (11.6-14.8); White Blood Cell Count 5.2 X10^3/uL (4.5-11.0)
[2021-05-16 19:48] LABS: Hemoglobin A1C% w Est Avg Glu 5.3 % (4.0-6.0)
[2021-05-16 19:53] LABS: Alanine Aminotransferase 18 IU/L (<35); Albumin 4.4 g/dL (3.5-5.0); Albumin Globulin Ratio 1.6 (1.0-2.8); Alkaline Phosphatase 80 U/L (38-126); Aspartate Aminotransferase 31 IU/L (14-36); Bilirubin Total 0.7 mg/dL (0.2-1.3); Blood Urea Nitrogen 13 mg/dL (7-17); Calcium 9.8 mg/dL (8.4-10.2); Carbon Dioxide 28 mmol/L (22-32); Chloride 100 mmol/L (98-107); Cholesterol 180 mg/dL (140-199); Estimated Glomerular Filt Rate > 60.0 mL/min (>60); Globulin 2.8 g/dL (1.7-4.1); Glucose 100 mg/dL (80-110); HDL Cholesterol 88 mg/dL (40-60); HEMOLYSIS < 15 (0-50); LDL Cholesterol Calculated 79 mg/dL (<100); Potassium 4.2 mmol/L (3.4-5.1); Sodium 138 mmol/L (137-145); Total Protein 7.2 g/dL (6.3-8.2); Triglycerides 64 mg/dL (35-150)
[2021-05-16 20:21] LABS: TSH w/ Reflex to FT4 3.27 uIU/mL (0.47-4.68)
== END ==
PROVIDERS: PCP Physician Assistant; Visit Provider Physician Assistant
DX: E03.9 Hypothyroidism, unspecified (principal); E11.9 Type 2 diabetes mellitus without complications; R07.89 Other chest pain; I25.10 Atherosclerotic heart disease of native coronary artery without angina pectoris
CPT/HCPCS: 80053; 80061; 83036; 84443; 85025

== ENCOUNTER → 2021-10-23 08:01 | Outpatient (CLI) | payer MEDICARE, SELFPAY ==
[2019-04-27 02:01] VITALS: BMI 28.3
[2021-10-23 20:23] LABS: COVID19 - ORCAS (NP or Nasal) Negative (Negative)
== END ==
PROVIDERS: PCP Physician Assistant; Visit Provider Physician Assistant
DX: Z01.812 Encounter for preprocedural laboratory examination (principal); Z20.822 Contact with and (suspected) exposure to COVID-19
CPT/HCPCS: C9803; U0003

== ENCOUNTER → 2022-03-29 12:47 | Outpatient (CLI) | payer MEDICARE, OTHER, SELFPAY ==
[2019-04-27 02:01] VITALS: BMI 28.3
--- NOTE | 2022-03-29 | DI.US.S_ITS ---
PROCEDURE: US CAROTID DOPPLER BI INDICATIONS: Essential (primary) hypertension TECHNIQUE: Color and pulse Doppler interrogation was performed of both carotid systems, with image documentation and velocity measurements. COMPARISON: None. FINDINGS: Stenosis calculations are based on SRU (Society of Radiologists in Ultrasound) criteria. The flow velocities and the arterial waveforms are normal within both carotid arterial systems. Focal left carotid atherosclerotic plaque is seen. The estimated degree of internal carotid artery stenosis is less than 50%. Antegrade flow is confirmed within both vertebral arteries. IMPRESSION: No hemodynamically significant stenosis is seen. Dictated by: Froylan Deleon M.D. on 03/29/2022 at 13:19 Approved by: Froylan Deleon M.D. on 03/29/2022 at 13:19
== END ==
PROVIDERS: PCP Physician Assistant; Referring Provider Family Medicine; Visit Provider Family Medicine
DX: I10 Essential (primary) hypertension (principal); E78.5 Hyperlipidemia, unspecified
CPT/HCPCS: 93880

== ENCOUNTER → 2022-04-15 13:44 | Outpatient (CLI) | payer MEDICARE, OTHER, SELFPAY ==
[2019-04-27 02:01] VITALS: BMI 28.3
--- NOTE | 2022-04-15 | DI.ECHO.S_ITS ---
[place] [facility]---------+ [facility] +---------+ : : [address] : : : : [id number] : : : : Phone: [phone]+ Echocardiogram Report + + :Name: BHAVNA ORDAZ Study Date: 04/15/2022 Height: 62 in : :[facility] ReadingLocation: Weight: 150 lb : : Gender: Female BSA: 1.7 m2 : :: 1945 Age: 77 yrs BP: 166/91 mmHg: :Reason For Study: HYPERTENSION : :Ordering Physician: FUAD, : :MAURICE Peters Performed By: Meghana Green : :Referring: MAURICE MERIDA : + + Interpretation Summary Normal left ventricle size with ejection fraction 65-70%. The left atrium is severely dilated. Mild aortic valve sclerosis. Mild mitral regurgitation. Mild tricuspid regurgitation. Procedure: A two-dimensional transthoracic echocardiogram with color flow and Doppler was performed. The study quality was technically adequate. There is no prior echocardiogram noted for this patient. The patient was in sinus rhythm with heart rates between 58-72 bpm during the exam. Left Ventricle: The left ventricle is normal in size and wall thickness. The ejection fraction is estimated to be 65-70%. There are no focal wall motion abnormalities. Right Ventricle: The right ventricle is normal in size and function. Atria: The left atrium is severely dilated. Right atrial size is normal. There is no Doppler evidence for an interatrial shunt. Mitral Valve: There is mild mitral annular calcification. The mitral valve leaflets appear borderline thickened, but open well. There is mild mitral regurgitation. Aortic Valve: The aortic valve is trileaflet. The aortic valve is slightly calcified. There is mild aortic valve sclerosis. No aortic regurgitation is present. Tricuspid Valve: The tricuspid valve is normal in structure and function. There is mild tricuspid regurgitation. The right ventricular systolic pressure is estimated to be at least 32 mmHg based on an estimated right atrial pressure of 3 mm Hg. Pulmonic Valve: The pulmonic valve leaflets are thin and pliable; valve motion is normal. There is no pulmonic valvular regurgitation. Great Vessels: The aortic root is normal size. The dimensions of the ascending aorta are normal. The IVC is of normal diameter and collapses greater than 50% with a sniff. This suggests a low right atrial pressure of 3 mm Hg. Pericardium/ Pleura There is no pericardial effusion. There is no pleural effusion. MMode/2D Measurements & Calculations LVIDd: 4.4 cm LVOT diam: 1.9 cm LVIDs: 2.4 cm Ao root diam: 2.5 cm FS: 45.0 % asc Aorta Diam: 3.2 cm EPSS: 0.58 cm Ao Arch Diam (Prox Trans): 2.4 cm IVSd: 0.86 cm LVPWd: 0.75 cm LV bhatti. diameter/BSA (cm/m^2): 2.6 LV sys. diameter/BSA (cm/m^2): 1.4 LA A2 area: 21.6 cm2 RA long axis: 4.5 cm LA A4 area: 21.7 cm2 RA area: 15.1 cm2 LA length (vol): 5.4 cm RA vol: 42.8 ml LA vol: 73.6 ml RA : 25.3 ml/m2 LA vol index: 43.5 ml/m2 IVC diam: 1.3 cm RVD1 (basal): 3.2 cm RVD2 (mid): 2.8 cm TAPSE: 1.7 cm Doppler Measurements & Calculations Ao V2 max: 214.8 cm/sec LVOT Max Richard: 136.3 cm/sec Ao V2 mean: 141.7 cm/sec LV V1 max P.4 mmHg Ao max P.5 mmHg LV V1 VTI: 28.7 cm Ao mean P.3 mmHg SHARAN(I,D): 1.9 cm2 Ao V2 VTI: 41.8 cm SHARAN(V,D): 1.7 cm2 sev ratio: 0.69 SHARAN indexed to BSA (cm^2/m^2): 1.1 MV E max richard: 86.2 cm/sec TR max richard: 267.6 cm/sec MV A max richard: 80.4 cm/sec TR max P.6 mmHg MV E/A: 1.1 PA V2 max: 96.8 cm/sec Med Peak E' Richard: 7.1 cm/sec PA V2 mean: 60.0 cm/sec E/E' med: 12.1 PA mean P.8 mmHg Lat Peak E' Richard: 7.3 cm/sec PA pr(Accel): 25.9 mmHg E/E' lat: 11.8 E/e' average: 12.0 MV dec time: 0.24 sec SV(LVOT): 78.6 ml Electronically signed by: Tasha Plascencia on Reading Physician:04/15/2022 03:49 PM
== END ==
PROVIDERS: PCP Physician Assistant; Referring Provider Family Medicine; Visit Provider Family Medicine
DX: I10 Essential (primary) hypertension (principal); E78.5 Hyperlipidemia, unspecified; I35.8 Other nonrheumatic aortic valve disorders; I34.0 Nonrheumatic mitral (valve) insufficiency; I07.1 Rheumatic tricuspid insufficiency
CPT/HCPCS: 93306

== ENCOUNTER → 2022-05-27 08:25 | Outpatient (CLI) | payer MEDICARE, OTHER, SELFPAY ==
[2019-04-27 02:01] VITALS: BMI 28.3
[2022-05-27 19:54] LABS: TSH w/ Reflex to FT4 1.64 uIU/mL (0.47-4.68)
[2022-05-27 20:54] LABS: BUN Creatinine Ratio 21.9 (6-22); Blood Urea Nitrogen 14 mg/dL (7-17); Calcium 9.8 mg/dL (8.4-10.2); Carbon Dioxide 29 mmol/L (22-32); Chloride 101 mmol/L (98-107); Estimated Glomerular Filt Rate > 60 mL/min (>60); Glucose 93 mg/dL (80-110); HEMOLYSIS < 15 (0-50); Potassium 4.7 mmol/L (3.4-5.1); Sodium 139 mmol/L (137-145)
== END ==
PROVIDERS: PCP Physician Assistant; Visit Provider Family Medicine
DX: E03.9 Hypothyroidism, unspecified (principal); E78.5 Hyperlipidemia, unspecified; I10 Essential (primary) hypertension; I25.10 Atherosclerotic heart disease of native coronary artery without angina pectoris
CPT/HCPCS: 80048; 84443

== ENCOUNTER → 2022-05-29 11:51 | Outpatient (CLI) | payer MEDICARE, OTHER, SELFPAY ==
[2019-04-27 02:01] VITALS: BMI 28.3
--- NOTE | 2022-05-29 | DI.CT.S_ITS ---
PROCEDURE: CT HEAD/BRAIN WO CON INDICATIONS: altered mental status unspecified TECHNIQUE: Noncontrast 4.5 mm thick angled axial sections acquired from the foramen magnum to the vertex, with coronal and sagittal reformats. For radiation dose reduction, the following was used: automated exposure control, adjustment of mA and/or kV according to patient size. COMPARISON: None. FINDINGS: Image quality: Excellent. CSF spaces: Basal cisterns are patent. No extra-axial fluid collections. The ventricles are symmetric in size and shape. Brain: No intracranial bleeds or masses. There is cerebral volume loss for age, with resultant ventricular and sulcal prominence. There are periventricular and deep white matter chronic small vessel ischemic changes. There is intracranial internal carotid artery atherosclerosis. There is dense calcification seen involving the left V4 segment. Skull and face: Calvarium and visualized facial bones appear intact, without suspicious lesions. Sinuses: Visualized sinuses and mastoids are clear. IMPRESSION: No significant brain abnormality is seen for age on this noncontrast head CT. Dictated by: Froylan Deleon M.D. on 05/29/2022 at 12:17 Approved by: Froylan Deleon M.D. on 05/29/2022 at 12:17
== END ==
PROVIDERS: PCP Physician Assistant; Referring Provider Family Medicine; Visit Provider Family Medicine
DX: R41.82 Altered mental status, unspecified (principal)
CPT/HCPCS: 70450

== ENCOUNTER → 2022-11-14 14:01 | Outpatient (CLI) | payer MEDICARE, OTHER, SELFPAY ==
[2019-04-27 02:01] VITALS: BMI 28.3
[2022-11-14 20:26] LABS: Add Manual Diff / Slide Review NO; Basophils Absolute Auto 0 /uL (0-100); Basophils Percent Auto 0.6 % (0-2); Eosinophils Absolute Auto 0 /uL (0-450); Eosinophils Percent Auto 0.7 % (2-4); Hematocrit 28.4 % (36-46); Hemoglobin 9.8 g/dL (12.0-16.0); Lymphocytes Absolute Auto 1600 /uL (1100-4500); Lymphocytes Percent Auto 24.5 % (25-40); Mean Corpuscular HGB Conc 34.3 % (30-36); Mean Corpuscular Hemoglobin 30.2 PG (26-34); Mean Corpuscular Volume 87.9 fL (80-100); Monocytes Absolute Auto 600 /uL (0-900); Monocytes Percent Auto 9.5 % (3-14); Neutrophils Absolute Auto 4100 /uL (1500-7000); Neutrophils Percent Auto 64.7 % (50-75); Platelet Count 387 X10^3/uL (150-400); Red Blood Cell Count 3.23 X10^6/uL (4.0-5.2); Red Cell Distribution Width 14.4 % (11.6-14.8); White Blood Cell Count 6.3 X10^3/uL (4.5-11.0)
[2022-11-14 20:58] LABS: BUN Creatinine Ratio 23.7 (6-22); Blood Urea Nitrogen 18 mg/dL (7-17); Calcium 9.2 mg/dL (8.4-10.2); Carbon Dioxide 25 mmol/L (22-32); Chloride 101 mmol/L (98-107); Estimated Glomerular Filt Rate > 60 mL/min (>60); Glucose 116 mg/dL (80-110); HEMOLYSIS < 15 (0-50); Sodium 133 mmol/L (137-145)
[2022-11-14 21:28] LABS: Ferritin 21 ng/mL (11-264)
[2022-11-15 01:39] LABS: Free T4, Direct Thyroxine 1.49 ng/dL (0.78-2.19)
== END ==
PROVIDERS: PCP Physician Assistant; Visit Provider Physician Assistant
DX: D64.9 Anemia, unspecified (principal); E03.9 Hypothyroidism, unspecified; K22.70 Barrett's esophagus without dysplasia; K92.2 Gastrointestinal hemorrhage, unspecified
CPT/HCPCS: 80048; 82728; 84439; 84443; 85025

== ENCOUNTER → 2022-11-28 10:44 | Outpatient (CLI) | payer MEDICARE, OTHER, SELFPAY ==
[2019-04-27 02:01] VITALS: BMI 28.3
--- NOTE | 2022-11-28 | DI.MRI.S_ITS ---
PROCEDURE: MR HEAD/BRAIN WO CON INDICATIONS: COGNITIVE IMPAIRMENT TECHNIQUE: Non-contrast axial T1 spin echo, axial T2 fast spin echo, sagittal and axial FLAIR, coronal T2 fast spin echo, axial gradient echo, axial diffusion and ADC through the brain. COMPARISON: [facility], CT, CT HEAD/BRAIN WO CON, 05/29/2022, 12:18. FINDINGS: Image quality: Excellent. CSF spaces: Ventricles appear symmetric in size and shape. Basal cisterns are patent. No extra-axial fluid collections. Brain: No intracranial bleeds or mass effects. There is cerebral volume loss for age. There are mild periventricular and deep white matter chronic small vessel ischemic changes. Brainstem appears normal. Diffusion-weighted images show no acute ischemic insults. No chronic ischemic insults. Normal intravascular flow voids are present. Skull and face: Calvarial bone marrow is normal in signal. Orbits are normal. Note is made of bilateral lens replacements. Sinuses: Sinuses and mastoids are clear. IMPRESSION: Brain MRI within normal limits, with age-appropriate brain parenchymal volume loss and chronic small vessel ischemic change. No findings of acute or subacute infarction can be seen. Dictated by: Froylan Deleon M.D. on 11/28/2022 at 14:53 Approved by: Froylan Deleon M.D. on 11/28/2022 at 14:54
== END ==
PROVIDERS: PCP Physician Assistant; Referring Provider Psychiatry & Neurology Neurology; Visit Provider Psychiatry & Neurology Neurology
DX: G31.84 Mild cognitive impairment of uncertain or unknown etiology; R47.89 Other speech disturbances
CPT/HCPCS: 70551

== ENCOUNTER → 2022-12-03 10:40 | Outpatient (CLI) | payer MEDICARE, OTHER, SELFPAY ==
[2022-12-03 09:05] VITALS: BMI 28.3
[2022-12-03 19:17] LABS: Add Manual Diff / Slide Review NO; Basophils Absolute Auto 0 /uL (0-100); Basophils Percent Auto 0.6 % (0-2); Eosinophils Absolute Auto 0 /uL (0-450); Eosinophils Percent Auto 0.3 % (2-4); Hematocrit 31.2 % (36-46); Hemoglobin 10.3 g/dL (12.0-16.0); Lymphocytes Absolute Auto 1100 /uL (1100-4500); Lymphocytes Percent Auto 17.4 % (25-40); Mean Corpuscular Hemoglobin 27.5 PG (26-34); Mean Corpuscular Volume 83.3 fL (80-100); Monocytes Absolute Auto 700 /uL (0-900); Monocytes Percent Auto 10.6 % (3-14); Neutrophils Absolute Auto 4600 /uL (1500-7000); Neutrophils Percent Auto 71.1 % (50-75); Platelet Count 354 X10^3/uL (150-400); Red Blood Cell Count 3.74 X10^6/uL (4.0-5.2); Red Cell Distribution Width 15.2 % (11.6-14.8); White Blood Cell Count 6.4 X10^3/uL (4.5-11.0)
[2022-12-03 19:27] LABS: BUN Creatinine Ratio 21.9 (6-22); Blood Urea Nitrogen 14 mg/dL (7-17); Calcium 9.6 mg/dL (8.4-10.2); Carbon Dioxide 28 mmol/L (22-32); Chloride 99 mmol/L (98-107); Estimated Glomerular Filt Rate > 60 mL/min (>60); Glucose 92 mg/dL (80-110); HEMOLYSIS < 15 (0-50); Potassium 4.5 mmol/L (3.4-5.1); Sodium 135 mmol/L (137-145)
[2022-12-03 19:57] LABS: TSH w/ Reflex to FT4 0.06 uIU/mL (0.47-4.68)
[2022-12-03 20:27] LABS: Free T4, Direct Thyroxine 2.54 ng/dL (0.78-2.19)
== END ==
PROVIDERS: PCP Physician Assistant; Visit Provider Physician Assistant
DX: E87.1 Hypo-osmolality and hyponatremia (principal); R07.89 Other chest pain; K92.2 Gastrointestinal hemorrhage, unspecified; D64.9 Anemia, unspecified; E11.9 Type 2 diabetes mellitus without complications
CPT/HCPCS: 80048; 81002; 84439; 84443; 85018; 85025

== ENCOUNTER → 2022-12-04 09:03 | Outpatient (CLI) | payer MEDICARE, OTHER, SELFPAY ==
[2022-12-03 09:05] VITALS: BMI 28.3
[2022-12-06 16:57] LABS: Fecal Immunochemical Test Negative (Negative)
== END ==
PROVIDERS: PCP Physician Assistant; Visit Provider Physician Assistant
DX: Z87.19 Personal history of other diseases of the digestive system (principal); R42 Dizziness and giddiness
CPT/HCPCS: 82274

== ENCOUNTER → 2023-02-18 10:34 | Outpatient (CLI) | payer MEDICARE, OTHER, SELFPAY ==
[2022-12-03 09:05] VITALS: BMI 28.3
[2023-02-18 20:11] LABS: Add Manual Diff / Slide Review NO; Basophils Absolute Auto 0 /uL (0-100); Basophils Percent Auto 0.9 % (0-2); Eosinophils Absolute Auto 0 /uL (0-450); Eosinophils Percent Auto 0.7 % (2-4); Hematocrit 30.8 % (36-46); Hemoglobin 9.6 g/dL (12.0-16.0); Lymphocytes Absolute Auto 1100 /uL (1100-4500); Lymphocytes Percent Auto 21.5 % (25-40); Mean Corpuscular HGB Conc 31.3 % (30-36); Mean Corpuscular Volume 70.1 fL (80-100); Monocytes Absolute Auto 400 /uL (0-900); Monocytes Percent Auto 7.5 % (3-14); Neutrophils Absolute Auto 3500 /uL (1500-7000); Neutrophils Percent Auto 69.4 % (50-75); Platelet Count 283 X10^3/uL (150-400); Red Blood Cell Count 4.39 X10^6/uL (4.0-5.2); Red Cell Distribution Width 17.2 % (11.6-14.8); White Blood Cell Count 5.1 X10^3/uL (4.5-11.0)
[2023-02-18 20:13] LABS: HEMOLYSIS < 15 (0-50); Iron 28 ug/dL (37-170)
[2023-02-18 20:22] LABS: BUN Creatinine Ratio 27.7 (6-22); Blood Urea Nitrogen 18 mg/dL (7-17); Calcium 9.2 mg/dL (8.4-10.2); Carbon Dioxide 24 mmol/L (22-32); Chloride 104 mmol/L (98-107); Cholesterol 192 mg/dL (140-199); Estimated Glomerular Filt Rate > 60 mL/min (>60); Glucose 95 mg/dL (80-110); HDL Cholesterol 103 mg/dL (40-60); HEMOLYSIS < 15 (0-50); LDL Cholesterol Calculated 71 mg/dL (<100); Potassium 3.9 mmol/L (3.4-5.1); Sodium 135 mmol/L (137-145); Triglycerides 91 mg/dL (35-150)
[2023-02-18 20:23] LABS: Percent Iron Saturation 5 % (15-50); Total Iron Binding Capacity 526 ug/dL (265-497); Transferrin 393 mg/dL (206-381)
[2023-02-18 20:46] LABS: TSH w/ Reflex to FT4 2.29 uIU/mL (0.47-4.68)
== END ==
PROVIDERS: PCP Family Medicine; Visit Provider Family Medicine
DX: I25.10 Atherosclerotic heart disease of native coronary artery without angina pectoris (principal); D64.9 Anemia, unspecified; E03.9 Hypothyroidism, unspecified; E78.5 Hyperlipidemia, unspecified; I10 Essential (primary) hypertension; E87.1 Hypo-osmolality and hyponatremia
CPT/HCPCS: 80048; 80061; 83540; 83550; 84443; 85025

== ENCOUNTER → 2023-05-07 13:26 | Outpatient (CLI) | payer MEDICARE, OTHER, SELFPAY ==
[2022-12-03 09:05] VITALS: BMI 28.3
[2023-05-07 20:07] LABS: Add Manual Diff / Slide Review NO; Basophils Absolute Auto 100 /uL (0-100); Basophils Percent Auto 1.1 % (0-2); Eosinophils Absolute Auto 100 /uL (0-450); Eosinophils Percent Auto 1.2 % (2-4); Hematocrit 31.9 % (36-46); Hemoglobin 10.1 g/dL (12.0-16.0); Lymphocytes Absolute Auto 1600 /uL (1100-4500); Lymphocytes Percent Auto 26.7 % (25-40); Mean Corpuscular HGB Conc 31.6 % (30-36); Mean Corpuscular Hemoglobin 22.6 PG (26-34); Mean Corpuscular Volume 71.7 fL (80-100); Monocytes Absolute Auto 500 /uL (0-900); Neutrophils Absolute Auto 3800 /uL (1500-7000); Platelet Count 348 X10^3/uL (150-400); Red Blood Cell Count 4.44 X10^6/uL (4.0-5.2); Red Cell Distribution Width 18.1 % (11.6-14.8); White Blood Cell Count 6.1 X10^3/uL (4.5-11.0)
[2023-05-07 20:15] LABS: HEMOLYSIS < 15 (0-50); Iron 32 ug/dL (37-170)
[2023-05-07 20:27] LABS: Percent Iron Saturation 6 % (15-50); Total Iron Binding Capacity 537 ug/dL (265-497); Transferrin 420 mg/dL (206-381)
== END ==
PROVIDERS: PCP Family Medicine; Visit Provider Family Medicine
DX: I25.10 Atherosclerotic heart disease of native coronary artery without angina pectoris (principal); D50.9 Iron deficiency anemia, unspecified
CPT/HCPCS: 83540; 83550; 85025

== ENCOUNTER → 2023-12-12 07:06 | Outpatient (CLI) | payer MEDICARE, OTHER, SELFPAY ==
[2023-07-18 08:12] VITALS: BMI 28.3
--- NOTE | 2023-12-12 07:09 | DI.US.S_ITS ---
PROCEDURE: US CAROTID DOPPLER BI INDICATIONS: right sided carotid bruit TECHNIQUE: Color and pulse Doppler interrogation was performed of both carotid systems, with image documentation and velocity measurements. COMPARISON: [facility], US, US CAROTID DOPPLER BI, 03/29/2022, 12:59. FINDINGS: Stenosis calculations are based on SRU (Society of Radiologists in Ultrasound) criteria. Right side: Brachial blood pressure: 148 mm Hg. Common carotid artery peak systolic velocity: 129 cm/sec. Internal carotid artery peak systolic velocity: 76 cm/sec. Internal carotid artery end diastolic velocity: 28 cm/sec. External carotid artery peak systolic velocity: 153 cm/sec. ICA/CCA peak systolic ratio: 0.7 . Villarreal scale imaging description: Mild atherosclerotic plaque Percent internal carotid artery stenosis: Less than 50% stenosis . Vertebral artery: Flow direction is antegrade. Left side: Brachial blood pressure: 149 mm Hg. Common carotid artery peak systolic velocity: 213 cm/sec (previously 95). Internal carotid artery peak systolic velocity: 125 cm/sec. Internal carotid artery end diastolic velocity: 32 cm/sec. External carotid artery peak systolic velocity: 223 cm/sec (previously 139). ICA/CCA peak systolic ratio: 0.6 . Villarreal scale imaging description: Severe atherosclerotic plaque with heavy plaque in the distal common carotid artery and bulb Percent internal carotid artery stenosis: 50-69% stenosis . Vertebral artery: Flow direction is antegrade. IMPRESSION: 1. Right internal carotid artery demonstrates less than 50% stenosis 2. Left internal carotid artery demonstrates 50-69% stenosis with severe atherosclerotic plaque in the distal common carotid artery/bulb. Common carotid velocity has increased to 213 cm/S, previously 95 cm/S. 3. Elevated velocity in the left external carotid artery with velocity of 223 cm/S. Dictated by: Beverly Ricketts M.D. on 12/12/2023 at 19:17 Approved by: Beverly Ricketts M.D. on 12/12/2023 at 19:19
== END ==
LOC: US 07:07
PROVIDERS: PCP Family Medicine; Referring Provider Family Medicine; Visit Provider Family Medicine
DX: I65.23 Occlusion and stenosis of bilateral carotid arteries (principal); R09.89 Other specified symptoms and signs involving the circulatory and respiratory systems
CPT/HCPCS: 93880

== ENCOUNTER → 2024-01-09 11:57 | Outpatient (CLI) | payer MEDICARE, OTHER, SELFPAY ==
[2024-01-09 09:06] VITALS: BMI 28.3
[2024-01-09 18:41] LABS: Appearance Urine UA CLEAR; Bilirubin Urine UA NEGATIVE (NEGATIVE); Color Urine UA YELLOW; Glucose Urine UA NEGATIVE (Negative); Ketones Urine UA NEGATIVE (NEGATIVE); Leukocyte Esterase Urine UA NEGATIVE (NEGATIVE); Nitrite Urine UA NEGATIVE (Negative); Occult Blood Urine UA NEGATIVE (Negative); Protein Urine UA NEGATIVE (Negative); Specific Gravity Urine UA <=1.005 (1.000-1.035); Urobilinogen Urine UA 0.2 E.U./dL (0.2)
[2024-01-09 19:00] LABS: pH Urine UA 6.5 (4.5-8.0)
[2024-01-09 19:01] LABS: Bacteria Urine Occasional (0-1); Culture Indicated Urine Cult Not Indicated; RBC Urine 0-1/HPF (0-5/HPF); Squamous Epithelial Cell Urine 0-1 /HPF (0-5/HPF); Urine Volume 10mL (spun); WBC Urine 0-1/HPF (0-5/HPF)
== END ==
PROVIDERS: PCP Family Medicine; Visit Provider Psychiatry & Neurology Neurology
DX: F01.B0 Vascular dementia, moderate, without behavioral disturbance, psychotic disturbance, mood disturbance, and anxiety (principal)
CPT/HCPCS: 81001

== ENCOUNTER → 2024-01-27 10:02 | Outpatient (CLI) | payer MEDICARE, OTHER, SELFPAY ==
[2024-01-09 09:06] VITALS: BMI 28.3
[2024-01-27 19:47] LABS: Add Manual Diff / Slide Review NO; Basophils Absolute Auto 0 /uL (0-100); Cholesterol 287 mg/dL (140-199); Eosinophils Absolute Auto 100 /uL (0-450); HDL Cholesterol 83 mg/dL (40-60); Hematocrit 31.4 % (36-46); Hemoglobin 10.4 g/dL (12.0-16.0); LDL Cholesterol Calculated 183 mg/dL (<100); Lymphocytes Absolute Auto 1500 /uL (1100-4500); Lymphocytes Percent Auto 35.3 % (25-40); Mean Corpuscular HGB Conc 33.1 % (30-36); Mean Corpuscular Hemoglobin 27.4 PG (26-34); Mean Corpuscular Volume 82.9 fL (80-100); Monocytes Absolute Auto 400 /uL (0-900); Monocytes Percent Auto 9.4 % (3-14); Neutrophils Absolute Auto 2200 /uL (1500-7000); Neutrophils Percent Auto 52.3 % (50-75); Platelet Count 331 X10^3/uL (150-400); Red Blood Cell Count 3.79 X10^6/uL (4.0-5.2); Triglycerides 103 mg/dL (35-150); White Blood Cell Count 4.2 X10^3/uL (4.5-11.0)
[2024-01-27 19:56] LABS: HEMOLYSIS < 15 (0-50); Iron 34 ug/dL (37-170)
[2024-01-27 20:10] LABS: Percent Iron Saturation 6 % (15-50); Total Iron Binding Capacity 538 ug/dL (265-497); Transferrin 417 mg/dL (206-381)
[2024-01-27 20:28] LABS: TSH w/ Reflex to FT4 4.24 uIU/mL (0.47-4.68)
== END ==
PROVIDERS: PCP Family Medicine; Referring Provider Family Medicine; Visit Provider Family Medicine
DX: R41.9 Unspecified symptoms and signs involving cognitive functions and awareness (principal); R41.89 Other symptoms and signs involving cognitive functions and awareness; E78.2 Mixed hyperlipidemia; E87.1 Hypo-osmolality and hyponatremia; D50.9 Iron deficiency anemia, unspecified; I10 Essential (primary) hypertension; E03.9 Hypothyroidism, unspecified; I25.10 Atherosclerotic heart disease of native coronary artery without angina pectoris
CPT/HCPCS: 80061; 83540; 83550; 84443; 85025

== ENCOUNTER → 2024-05-24 10:38 | Outpatient (CLI) | payer MEDICARE, OTHER, SELFPAY ==
[2024-05-04 09:48] VITALS: BMI 28.3
[2024-05-24 19:28] LABS: Add Manual Diff / Slide Review NO; Basophils Absolute Auto 100 /uL (0-100); Eosinophils Absolute Auto 100 /uL (0-450); Eosinophils Percent Auto 1.8 % (2-4); Hematocrit 36.3 % (36-46); Hemoglobin 11.6 g/dL (12.0-16.0); Lymphocytes Absolute Auto 2000 /uL (1100-4500); Lymphocytes Percent Auto 32.2 % (25-40); Mean Corpuscular HGB Conc 31.9 % (30-36); Mean Corpuscular Volume 75.3 fL (80-100); Monocytes Absolute Auto 500 /uL (0-900); Monocytes Percent Auto 8.3 % (3-14); Neutrophils Absolute Auto 3400 /uL (1500-7000); Neutrophils Percent Auto 56.7 % (50-75); Platelet Count 295 X10^3/uL (150-400); Red Blood Cell Count 4.82 X10^6/uL (4.0-5.2); Red Cell Distribution Width 18.7 % (11.6-14.8); White Blood Cell Count 6.1 X10^3/uL (4.5-11.0)
[2024-05-24 19:31] LABS: HEMOLYSIS < 15 (0-50); Iron 46 ug/dL (37-170)
[2024-05-24 19:34] LABS: HDL Cholesterol 81 mg/dL (40-60); Triglycerides 128 mg/dL (35-150)
[2024-05-24 19:43] LABS: Cholesterol 336 mg/dL (140-199); LDL Cholesterol Calculated 229 mg/dL (<100); Percent Iron Saturation 9 % (15-50); Total Iron Binding Capacity 517 ug/dL (265-497); Transferrin 437 mg/dL (206-381)
[2024-05-24 20:04] LABS: TSH w/ Reflex to FT4 3.67 uIU/mL (0.47-4.68)
[2024-05-24 20:41] LABS: Folate > 20.0 ng/mL (2.76-20.0); Vitamin B12 316 pg/mL (239-931)
== END ==
PROVIDERS: PCP Family Medicine; Visit Provider Family Medicine
DX: D50.9 Iron deficiency anemia, unspecified (principal); R41.3 Other amnesia; E78.2 Mixed hyperlipidemia; R41.89 Other symptoms and signs involving cognitive functions and awareness; E78.5 Hyperlipidemia, unspecified; E03.9 Hypothyroidism, unspecified; I25.10 Atherosclerotic heart disease of native coronary artery without angina pectoris
CPT/HCPCS: 80061; 82607; 82746; 83540; 83550; 84443; 85025

== ENCOUNTER → 2024-12-20 09:55 | Outpatient (CLI) | payer MEDICARE, OTHER, SELFPAY ==
[2024-05-04 09:48] VITALS: BMI 28.3
[2024-12-20 19:25] LABS: Cholesterol 275 mg/dL (140-199); HDL Cholesterol 77 mg/dL (40-60); LDL Cholesterol Calculated 178 mg/dL (<100); Triglycerides 102 mg/dL (35-150)
[2024-12-20 20:10] LABS: TSH w/ Reflex to FT4 4.72 uIU/mL (0.47-4.68)
[2024-12-20 20:29] LABS: Vitamin B12 330 pg/mL (239-931)
[2024-12-20 21:00] LABS: Free T4, Direct Thyroxine 1.47 ng/dL (0.78-2.19)
== END ==
PROVIDERS: PCP Family Medicine; Visit Provider Family Medicine
DX: E03.9 Hypothyroidism, unspecified (principal); E87.1 Hypo-osmolality and hyponatremia; R09.89 Other specified symptoms and signs involving the circulatory and respiratory systems; R41.89 Other symptoms and signs involving cognitive functions and awareness; E78.5 Hyperlipidemia, unspecified; D50.9 Iron deficiency anemia, unspecified
CPT/HCPCS: 80061; 82607; 84439; 84443

== ENCOUNTER → 2025-02-08 09:11 | Outpatient (CLI) | payer MEDICARE, OTHER, SELFPAY ==
[2024-05-04 09:48] VITALS: BMI 28.3
--- NOTE | 2025-02-08 09:12 | DI.US.S_ITS ---
PROCEDURE: US THYROID INDICATIONS: PALPABLE NECK LUMP INCIDENTALLY FOUND DURING SURGERY TECHNIQUE: Real-time scanning was performed of the thyroid gland, with image documentation. COMPARISON: None. FINDINGS: Thyroid: Right lobe measures 3.0 x 0.9 x 1.2 cm. Left lobe measures 3.1 x 1.0 x 0.9 cm. Isthmus is 0.2 cm thick. Echotexture is heterogeneous. Suspected prominent lymph node along the inferior margin of the thyroid measuring 0.7 x 0.9 x 0.3 cm. This has a reactive fatty hilum with hilar blood flow. Nodule number: 1 Location: Left inferior pole Size: 1.2 x 1.0 x 0.9 cm. Composition: Solid Echogenicity: Hyperechoic Shape: wider than tall. 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 Suspected regenerating nodule of the inferior pole of the left thyroid lobe measuring 1.2 cm. This does not meet size criteria for biopsy or follow-up. ACR TI-RADS definitions and recommendations: TI-RADS 1 (benign): 0 points. FNA not needed. TI-RADS 2 (not suspicious): 2 points. FNA not needed. TI-RADS 3: 3 points. * FNA if 2.5 cm or larger, follow up if 1.5 cm or larger (at 1, 3, and 5 years). TI-RADS 4: 4-6 points. * FNA if 1.5 cm or larger, follow up if 1 cm or larger (at 1, 2, 3, and 5 years). TI-RADS 5: 7 points or more. * FNA if 1 cm or larger, follow up if 0.5 cm or larger (every year for 5 years). Dictated by: Chris Honeycutt M.D. on 02/08/2025 at 12:29 Approved by: Chris Honeycutt M.D. on 02/08/2025 at 12:32
== END ==
LOC: US 09:12
PROVIDERS: PCP Family Medicine; Referring Provider Family Medicine; Visit Provider Family Medicine
DX: E04.1 Nontoxic single thyroid nodule (principal)
CPT/HCPCS: 76536

== ENCOUNTER → 2025-07-12 09:23 | Outpatient (CLI) | payer MEDICARE, OTHER, SELFPAY ==
[2024-05-04 09:48] VITALS: BMI 28.3
[2025-07-12 18:55] LABS: Add Manual Diff / Slide Review NO; Hematocrit 40.2 % (36-46); Hemoglobin 13.3 g/dL (12.0-16.0); Lymphocytes Absolute Auto 1500 /uL (1100-4500); Mean Corpuscular HGB Conc 33.0 % (30-36); Mean Corpuscular Hemoglobin 28.0 PG (26-34); Mean Corpuscular Volume 85.0 fL (80-100); Platelet Count 262 X10^3/uL (150-400)
[2025-07-12 19:19] LABS: HEMOLYSIS 23 (0-50); Iron 92 ug/dL (37-170)
[2025-07-12 19:23] LABS: Blood Urea Nitrogen 10 mg/dL (7-17); Calcium 9.6 mg/dL (8.4-10.2); Carbon Dioxide 28 mmol/L (22-32); Chloride 106 mmol/L (98-107); Cholesterol 190 mg/dL (140-199); Estimated Glomerular Filt Rate > 60 mL/min (>60); Glucose 95 mg/dL (70-99); HDL Cholesterol 88 mg/dL (40-60); HEMOLYSIS < 15 (0-50); Potassium 4.1 mmol/L (3.4-5.1); Sodium 142 mmol/L (137-145); Triglycerides 146 mg/dL (35-150)
[2025-07-12 19:33] LABS: Percent Iron Saturation 20 % (15-50); Total Iron Binding Capacity 470 ug/dL (265-497); Transferrin 386 mg/dL (206-381)
[2025-07-12 19:46] LABS: TSH w/ Reflex to FT4 5.22 uIU/mL (0.47-4.68)
[2025-07-12 20:05] LABS: Vitamin B12 218 pg/mL (239-931)
[2025-07-12 20:43] LABS: Free T4, Direct Thyroxine 1.30 ng/dL (0.78-2.19)
== END ==
PROVIDERS: PCP Family Medicine; Referring Provider Family Medicine; Visit Provider Family Medicine
DX: I25.10 Atherosclerotic heart disease of native coronary artery without angina pectoris (principal); E78.2 Mixed hyperlipidemia; I10 Essential (primary) hypertension; E87.1 Hypo-osmolality and hyponatremia; E03.9 Hypothyroidism, unspecified; D50.9 Iron deficiency anemia, unspecified; E04.1 Nontoxic single thyroid nodule
CPT/HCPCS: 80048; 80061; 82607; 83540; 83550; 84439; 84443; 85025